=== PATIENT | female | born 1955 | race Hispanic/Latino ===

== ENCOUNTER 2018-08-02 10:03 | Outpatient (CLI) | payer OTHER | END 2018-08-02 10:04 | disposition home or self-care (01) | LOC: RAD 10:03 ==

== ENCOUNTER → 2018-08-21 | Outpatient (CLI) | payer OTHER | LOC: LAB 07:38 ==

== ENCOUNTER 2018-08-28 13:42 | Outpatient (CLI) | payer OTHER | END 2018-08-28 13:43 | disposition home or self-care (01) | LOC: LAB 13:42 ==